=== PATIENT | male | born 1995 | race Caucasian/White ===

== ENCOUNTER 2024-06-25 15:07 | Emergency (ER) | payer BC ==
[~2024-06-25] VITALS: Ht 175.3 cm; Wt 87.0 kg
[2024-06-25 15:15] VITALS: TEMP 97.9; O2SAT 99
[2024-06-25 16:22] LABS: BASOPHILS % 0.9 % (0.0-2.0); EOSINOPHILS % 11.8 % (0.0-5.0); HEMATOCRIT. 47.3 % (42.0-52.0); LYMPHOCYTES % 21.4 % (20.0-50.0); MEAN CORPUSCULAR HEMOGLOBIN 30.1 pg (28.0-32.0); MEAN CORPUSCULAR HGB CONC 33.8 g/dL (31.0-37.0); MEAN CORPUSCULAR VOLUME 89.1 fL (80.0-94.0); MEAN PLATELET VOLUME 7.8 fl (7.4-10.4); MONOCYTES % 8.9 % (2.0-8.0); PLATELET 242 x1000/uL (130-400); RED BLOOD CELL COUNT 5.31 mill/uL (4.7-6.1); RED CELL DISTRIBUTION WIDTH 13.6 % (11.6-14.6); WHITE BLOOD COUNT 6.9 x1000/uL (4.5-11.0)
[2024-06-25 16:28] LABS: CHLORIDE 104 mEq/L (98-107); POTASSIUM 4.4 mEq/L (3.5-5.1); SODIUM 139 mEq/L (136-145)
[2024-06-25 16:29] LABS: CALCIUM 10.4 mg/dL (8.7-10.4); CARBON DIOXIDE 28 mEq/L (21-32)
[2024-06-25 16:34] LABS: CREATININE 0.9 mg/dL (0.6-1.3); GLUCOSE 104 mg/dL (70-105); UREA NITROGEN BLOOD 12 mg/dL (9-23)
[2024-06-25 16:39] LABS: TROPONIN I HIGH SENSITIVITY < 4 ng/L (3.0-53)
[2024-06-25 20:23] VITALS: BP 121/83; PULSE 86; RESP 16
== END 2024-06-25 20:23 | disposition home or self-care (01) ==
LOC: ER 15:07
DX: R42 Dizziness and giddiness (principal)
CPT/HCPCS: 36415; 80048; 80320; 82962; 84484; 85025; 99284; G0480

== ENCOUNTER 2025-09-20 22:05 | Emergency (ER) | payer BC, OTHER ==
[~2025-09-20] VITALS: Ht 172.7 cm; Wt 92.0 kg
[2025-09-20 22:25] VITALS: RESP 18; O2SAT 98
[2025-09-21 00:17] VITALS: BP 114/81; PULSE 68; TEMP 36.8; O2SAT 97
== END 2025-09-21 00:20 | disposition home or self-care (01) ==
LOC: ER 22:05
DX: R25.2 Cramp and spasm (principal)
CPT/HCPCS: 93970; 99284